=== PATIENT | female | born 1975 | race Caucasian/White ===

== ENCOUNTER 2016-07-07 02:22 | Inpatient (IN) ==
[2016-07-02 12:00] LABS: MANUAL DIFF NEEDED? NO
[2016-07-02 12:00] LABS: URINE MICRO REVIEW NEEDED? NO; URINE SOURCE VOIDED
[2016-07-02 12:10] LABS: BILIRUBIN URINE NEGATIVE (NEGATIVE); BLOOD URINE MODERATE (NEGATIVE); COLOR STRAW; GLUCOSE URINE NEGATIVE (NEGATIVE); LEUKOCYTES URINE NEGATIVE (NEGATIVE); NITRITE URINE NEGATIVE (NEGATIVE); PROTEIN URINE NEGATIVE (NEGATIVE); TURBIDITY URINE CLEAR (CLEAR); UROBILINOGEN URINE NORMAL (NORMAL)
[2016-07-02 12:10] LABS: BASO% 0.4 % (0.0-0.8); EOS# 0.31 X1000 (0.0-0.7); EOS% 3.2 % (0.0-10.0); HEMATOCRIT 42.6 % (37.0-47.0); HEMOGLOBIN 14.1 g/dL (12.0-16.0); LYMPH# 4.08 X1000 (1.2-3.4); LYMPH% 42.4 % (20.5-51.1); MCH 32.2 PG (27-31); MCHC 33.1 g/dL (33-37); MCV 97.3 FL (81-99); MONO# 0.72 X1000 (0.11-0.59); MONO% 7.5 % (1.7-9.3); MPV 11.8 FL (7.4-10.4); NEUT% 46.5 % (42.2-75.2); PLT 213 X1000 (130-400); RBC 4.38 XMIL (4.2-5.4)
[2016-07-02 12:12] LABS: UR EPITHELIAL CELLS <10 /HPF (<10); URINE BACTERIA NEGATIVE /HPF; URINE RBC <10 /HPF (<10); URINE WBC <10 /HPF (<10)
--- NOTE | 2016-07-06 13:01 | HISTORY AND PHYSICAL ---
SUBJECTIVE: Rukhsana is a 40-year-old white female, para 2, with a history of 2 C-sections, also an appendectomy, being admitted at this time for a total abdominal hysterectomy with bilateral salpingo-oophorectomy. Rukhsana has had an ongoing issue with abnormal uterine bleeding, as well as severe dysmenorrhea. She also has had problems with ovarian cyst from time to time. She feels that she wants to move on in the direction of a definitive approach with the hysterectomy. We did discuss the management of her ovaries and she feels that she wants to go ahead and have them extirpated at this time and she does understand the ramifications that this will bring on somewhat of an early menopause and that she may need to consider hormone replacement therapy postoperatively. Overall, she feels well informed in regards to those issues but due to her past with the ovarian cyst and the chronic pain issue, she would like to go ahead and have the ovaries extirpated. We did discuss the nature of the procedure, that we would be doing this through an abdominal incision, somewhat similar to what she had done with her C-sections. We also discussed the risk of the procedure, risk of anesthesia, issues including, but not limited to, injury to surrounding structures, infection, hemorrhage, and even . We discussed the possibility that if there is significant scarring around the cervix making it more of a risk to remove it that we might leave it in place but hope to plan to remove the cervix. We did discuss the length of hospitalization as well as the recuperation time at home and the restrictions therein, and overall she feels well informed and felt that all of her questions had been answered. Her mother accompanied her to that visit and they both felt well informed and had no further questions. PAST MEDICAL HISTORY: Other than the above is for the most part noncontributory. ALLERGIES: She has no known allergies. FAMILY HISTORY: Significant for lung cancer in a paternal grandmother. SOCIAL HISTORY: Basically noncontributory. REVIEW OF SYSTEMS: Basically noncontributory. MEDICATIONS: She does use ibuprofen 800 mg occasionally as needed. I did ask her to leave that off at least 10 days preop. PHYSICAL EXAMINATION: GENERAL: Exam is that of a well-developed, well-nourished, 40-year-old white female, in no acute distress. VITAL SIGNS: Stable. Noted on the chart. HEENT: Unremarkable. NECK: Without nodes or thyromegaly. HEART: Regular without murmurs, gallops, or rubs. LUNGS: Clear. BREASTS: Without mass or tenderness. ABDOMEN: Soft, nontender. No masses. PELVIC: Normal external female genitalia. Vagina is clean. Cervix, no lesions. Her last Pap was ASCUS but HPV was negative. Uterus is normal size. She has a small fibroid as noted on ultrasound. No adnexal masses were felt. Rectovaginal exam is unremarkable. EXTREMITIES: Without tenderness or edema. NEUROLOGICAL: Grossly normal. ASSESSMENT: 1. Abnormal uterine bleeding, refractory to prior medical therapy. 2. Severe dysmenorrhea. 3. Intermittent ovarian cyst. PLAN: Total abdominal hysterectomy with bilateral salpingo-oophorectomy. cc: Lacho Walker MD
[2016-07-07] MEDS ORDERED: LR 1,000 ML ONE ×3 (05:31→08:59)
[2016-07-07] MEDS ORDERED: KEFZOL 1 GM/D5W 1 GM/50 ML IVPB ONE (05:31)
[2016-07-07] MEDS ORDERED: PEPCID ONE (05:31)
[2016-07-07] MEDS ORDERED: REGLAN ONE (05:31)
[2016-07-07] MEDS ORDERED: SODIUM CHLORIDE 0.9% 10 ML ONE (06:55)
[2016-07-07] MEDS ORDERED: MARCAINE 0.25% PF ONE (06:56)
[2016-07-07] MEDS ORDERED: EXPAREL 1.3% ONE (06:56)
[2016-07-07] MEDS ORDERED: FENTANYL ONE (08:18)
[2016-07-07] MEDS ORDERED: DIPRIVAN 1% ONE (08:18)
[2016-07-07] MEDS: DILAUDID ONE ×4 (08:19→10:25)
[2016-07-07] MEDS ORDERED: PHENERGAN ONE (08:27)
[2016-07-07 08:33] LABS: URINE MICRO REVIEW NEEDED? NO; URINE SOURCE CATH
[2016-07-07 08:46] LABS: BILIRUBIN URINE NEGATIVE (NEGATIVE); BLOOD URINE NEGATIVE (NEGATIVE); COLOR YELLOW; GLUCOSE URINE NEGATIVE (NEGATIVE); LEUKOCYTES URINE NEGATIVE (NEGATIVE); NITRITE URINE NEGATIVE (NEGATIVE); PROTEIN URINE TRACE mg/dL (NEGATIVE); SP GRAVITY URINE 1.025; TURBIDITY URINE CLEAR (CLEAR); UROBILINOGEN URINE NORMAL (NORMAL)
[2016-07-07 08:49] LABS: UR EPITHELIAL CELLS <10 /HPF (<10); URINE BACTERIA NEGATIVE /HPF; URINE RBC <10 /HPF (<10); URINE WBC <10 /HPF (<10)
[2016-07-07] MEDS ORDERED: ZEMURON ONE (08:59)
[2016-07-07] MEDS ORDERED: DECADRON ONE (08:59)
[2016-07-07] MEDS ORDERED: QUELICIN (DOSE) ONE (08:59)
[2016-07-07] MEDS ORDERED: XYLOCAINE-MPF 2% ONE (08:59)
[2016-07-07] MEDS ORDERED: NEOSTIGMINE ONE (08:59)
[2016-07-07] MEDS ORDERED: ZOFRAN ONE (08:59)
[2016-07-07] MEDS ORDERED: ROBINUL ONE (08:59)
[2016-07-07] MEDS ORDERED: DILAUDID PCA VIAL ONE (09:00)
[2016-07-07] MEDS ORDERED: BENADRYL IV PRN (10:15)
[2016-07-07] MEDS ORDERED: NARCAN IV PRN (10:15)
[2016-07-07] MEDS ORDERED: ZOFRAN IV PRN (10:15)
[2016-07-07] MEDS ORDERED: PHENERGAN IV PRN (10:15)
[2016-07-07] MEDS ORDERED: DILAUDID PCA VIAL IV PRN (10:15)
[2016-07-07] MEDS ORDERED: SODIUM CHLORIDE 0.9% INJ PRN (10:15)
[2016-07-07] MEDS ORDERED: CLIMARA 0.05 MG/24 HR PATCH TD ONE (10:43)
[2016-07-07] MEDS: LR 1,000 ML IV SCH ×2 (12:32→17:48)
[2016-07-07] MEDS: PERIDEX MT SCH ×2 (12:59→22:17)
--- NOTE | 2016-07-07 15:11 | PROGRESS NOTE ---
DATE: 07/07/2016 Rukhsana is now about 6 hours status post total abdominal hysterectomy with bilateral salpingo- oophorectomy. She is resting comfortably in her room on the fourth floor with her mom and grandmother at her bedside. She seems to be having adequate pain relief with the tap block, as well as the [employer] pump. Urine output is adequate. Vital signs are stable. She is afebrile. She has been able to consume some liquids and will increase that not only through the afternoon but also tomorrow morning. All plans were discussed with Rukhsana and her family and they will let me know certainly should there be any problems along the way. At this point, will plan to revisit her first thing tomorrow morning and see how things are going with the possible prospects of going home tomorrow around lunchtime. She is stable postop. cc: Lacho Walker MD
--- NOTE | 2016-07-07 16:56 | OPERATIVE NOTE ---
PROCEDURE DATE: 07/07/2016 SURGEON: Lacho Walker MD CORPORATE DEVELOPMENT ANALYST: Usman Garcia MD ANESTHESIA: General endotracheal Dr. Bazan. Also TAP block Dr. Bazan. PREOPERATIVE DIAGNOSES: 1. Abnormal uterine bleeding. 2. Severe dysmenorrhea. 3. Chronic pelvic pain. POSTOPERATIVE DIAGNOSES: 1. Grossly normal size uterus with small anterior fibroid. 2. Small simple left ovarian cyst. 3. Normal right ovary. 4. Scattered pelvic adhesions mostly anteriorly in the area of the old bladder flap from her C- sections. PROCEDURES PERFORMED: Total abdominal hysterectomy with bilateral salpingo-oophorectomy. DESCRIPTION OF PROCEDURE: Rukhsana was brought to the operating room and after being placed upon the operating table in the supine position and under general anesthesia, she was then prepped for the TAP block, which was administered by Dr. Bazan, and once that was completed, she was prepped and draped in the usual sterile fashion for the hysterectomy with a Tripathi catheter in place. The abdomen was entered going through the old Pfannenstiel incision area and once we entered the peritoneum, it was extended and the Piotr retractor was inserted. The bladder blade was placed and then 2 moist lap packs were used to displace the bowel superiorly and out of the field of surgery. We grasped the fundus of the uterus with a Rashida clamp for traction purposes. There was a small adhesion between the bowel and the left adnexa, which we took down using the electrocautery and then we grasped the left adnexa with a Riner clamp, elevated it to identify the infundibulopelvic ligament and the ureter to be deep to these structures and then used the LigaSure to clamp, cauterize, and transect in a stepwise manner the infundibulopelvic ligament on up to the round ligament and ultimately transecting the round ligament with the transection aimed toward the reflected peritoneum anteriorly. Once that was done, the left adnexa was extirpated in a likewise manner and then subsequently, we performed the same exact procedures on the right side. Ultimately, removing the right tube and ovary and again transecting the right round ligament. We then incised the reflected peritoneum and adhesions anteriorly and with both sharp and blunt dissection we were able to mobilize the bladder down and away from the surface of the cervix. We then used a Kori clamp to clamp the uterine vessels, this was done on each side. They were then transected and suture ligated using 0 Polysorb, which we employed throughout. At this point, we then converted over to Ayanna clamps and in a stepwise manner clamped transected and suture ligated the remaining paracervical tissue down to the cervix and ultimately gaining access to the upper angles of the vagina, first on the left side and then on the right side it was very close. We then used the Sinan scissors to extirpate the cervix away from the vaginal attachments and then place Ayanna's along the anterior and posterior aspects of the vaginal cuff to allow stabilization during closure of the cuff. Beginning on the right side, we placed a figure-of- eight stitch through the angle of the cuff tacking it to the uterosacral for support purposes and in a likewise manner, the same was done on the right side. This left 2 more [id number] style stitches to place in the cuff to complete closure as well as provide hemostasis. There was a small oozing point on the bladder edge from the dissection, which we hit with the electrocautery superficially and provided hemostasis there. We then irrigated the pelvic cavity and inspected all of our pedicles, which were found to be dry. We cut any excess suture material. We then removed the moist lap packs and again inspected for good hemostasis, which was confirmed. The bladder blade and the [place] retractor were then removed and we grasped the peritoneal edges with Kaley clamps and closed the peritoneum with a running 0 Polysorb. The subfascial plane was controlled hemostatically with the electrocautery. The fascia was run back together with a running #1 Polysorb and the subcutaneous layer was irrigated, inspected, and controlled hemostatically with the electrocautery. Prior to closure of the incision, I did undermine the adhesions within the subcutaneous layer to elevate a dimpling in her old incision to see if we may get a smoother healing affect this time and after that was done, and confirming hemostasis, we brought the skin edges together using the surgical stapler. The incision site was cleaned, was covered with a sterile dry gauze dressing, and having tolerated the procedure well Rukhsana was awakened and transferred to the stretcher and to the recovery room in stable condition draining clear urine in the Tripathi catheter bag. It should be noted that all of our needle, sponge and instrument counts were correct at the end the case. Also, it should be noted that I did speak with her mom and grandmother out side of the waiting area to let them know that the procedure had gone well. We had no unplanned events, and that Rukhsana tolerated it quite well. They were pleased with the report and had no further questions at that time. We did discuss our plans over the next day or so as long as she is progressing smoothly. cc: Lacho Walker MD
[2016-07-07] MEDS: COLACE PO SCH (22:17)
[2016-07-08 05:52] LABS: HEMATOCRIT 33.5 % (37.0-47.0); HEMOGLOBIN 10.8 g/dL (12.0-16.0); MCH 32.5 PG (27-31); MCHC 32.2 g/dL (33-37); MCV 100.9 FL (81-99); MPV 11.6 FL (7.4-10.4); RBC 3.32 XMIL (4.2-5.4)
[2016-07-08 07:29] VITALS: BP 136/63
[2016-07-08] MEDS ORDERED: SALINE LOCK IV FLUID XX ONE (07:55)
[2016-07-08] MEDS ORDERED: NORCO-10 PO PRN (08:07)
[2016-07-08] MEDS: LR 1,000 ML IV SCH (08:40)
[2016-07-08] MEDS: PERIDEX MT SCH (08:41)
[2016-07-08] MEDS: COLACE PO SCH (08:41)
--- NOTE | 2016-07-08 09:23 | PROGRESS NOTE ---
DATE: 07/08/2016 SUBJECTIVE: Rukhsana is now approximately 24 hours status post total abdominal hysterectomy with bilateral salpingo-oophorectomy. She is doing well on postop day 1. OBJECTIVE: Vital signs: She has remained afebrile with stable vital signs. Abdomen: Soft. Dressing dry. It was removed and the incision is clean and dry. : Minimal to no vaginal discharge or drainage. She has been able to void once on her own since the catheter was removed earlier this morning. She has been able to tolerate solid and liquids so far and will be planning to eat a regular breakfast this morning. BLOOD WORK: White count was 14,000 and hematocrit was 33.5. PLAN: We will increase her diet, her activity, and re-evaluate her around lunchtime today to see if she will be a candidate to be discharged to home. She feels at this point that she would like to if all seems to be going appropriately at that time. She did have good urine output through the night and overall feels that her care has been excellent to this point. She is stable postop. cc: Lacho Walker MD
--- NOTE | 2016-07-08 12:19 | PROGRESS NOTE ---
DATE: 07/08/2016 Postoperative day 1. Rukhsana has had a good morning and feels that she is ready to be discharged to home. She has been able to eat a little bit without any nausea and has been able to increase her activity. She is voiding spontaneously without the catheter, and the incision is clean and dry. We have gone over all of the home medications and instructions regarding lifting, driving, incision care, and intimacy. She also will expect a small amount of vaginal spotting, but not any heavy bleeding or the need to be changing pads every few minutes. Plans were made for her to return to the private office next Wednesday or Wednesday, whichever is convenient for her, for staple removal and the 1st postoperative check. In the meantime, she will take her [place] 10 one- half to 1 tablet every 4-6 hours as needed for pain, along with Phenergan 25 mg one-half to 1 tablet every 4-6 hours as needed for nausea. General instructions have been gone over and she feels well informed, and basically had no further questions. ASSESSMENT: She is stable status post total abdominal hysterectomy with bilateral salpingo- oophorectomy. cc: Lacho Walker MD
== END 2016-07-08 13:25 | disposition home or self-care (01) ==
LOC: SURHOLD 02:22 → 4N 10:26
PROVIDERS: ADMIT Obstetrics & Gynecology; ATTEND Obstetrics & Gynecology